=== PATIENT | female | born 1995 | race American Indian/Alaskan Native ===

== ENCOUNTER 2017-01-05 23:58 | Outpatient (CLI) | payer MEDICAID ==
[2017-01-06] MEDS ORDERED: LACTATED RINGERS 1,000 ML IV ONE (00:09)
[2017-01-06 00:20] VITALS: BP 117/68
[2017-01-06 00:49] LABS: Bilirubin,Urine NEG (Negative); Blood,Urine NEG (Negative); Ketones,Urine NEG (Negative); Leukocyte Esterase,Urine NEG (Negative); Mucus,Urine 1+ /HPF; Nitrite,Urine NEG (Negative); Protein,Urine <15 mg/dL mg/dL (Negative)
== END 2017-01-06 01:30 | disposition home or self-care (01) ==
LOC: TRG 23:58
PROVIDERS: ATTEND Obstetrics & Gynecology
DX: O47.9 False labor, unspecified (principal); Z3A.00 Weeks of gestation of pregnancy not specified
CPT/HCPCS: 81001; 96360; J7120

== ENCOUNTER 2017-01-12 23:55 | Outpatient (CLI) | payer MEDICAID ==
[2017-01-13 00:24] VITALS: BP 103/50
[2017-01-13] MEDS ORDERED: VISTARIL PO ONE (01:07)
== END 2017-01-13 01:21 | disposition home or self-care (01) ==
LOC: TRG 23:55
PROVIDERS: ATTEND Obstetrics & Gynecology
DX: O62.0 Primary inadequate contractions (principal); O47.1 False labor at or after 37 completed weeks of gestation; Z3A.37 37 weeks gestation of pregnancy
CPT/HCPCS: Q0177

== ENCOUNTER 2019-10-05 20:28 | Inpatient (IN) | payer MEDICAID ==
[2019-10-05] MEDS ORDERED: MINERAL OIL 30 ML ORAL LIQD PO PRN (21:06)
[2019-10-05] MEDS ORDERED: LIDOCAINE (2%) 20 MG/1 ML VIAL 20 ML MDV INFILTRATI ONE (21:06)
[2019-10-05] MEDS ORDERED: ePHEDrine SULFATE 50 MG/1 ML INJ IV PRN (21:06)
[2019-10-05] MEDS ORDERED: TERBUTALINE 1 MG/1 ML INJ SUB-Q PRN (21:06)
[2019-10-05] MEDS ORDERED: TERBUTALINE 1 MG/1 ML INJ IVP PRN (21:06)
[2019-10-05] MEDS ORDERED: OXYTOCIN 20 UNIT/1000ML DRIP 20 UNITS/1,000 ML BAG IV SCH (22:00)
[2019-10-05 22:02] LABS: Hematocrit 33.8 % (30.3-42.9); Hemoglobin 11.4 gm/dl (10.1-14.3); Mean Corpuscular HGB Conc 34 % (30-34); Mean Corpuscular Volume 86 fl (79-97); Platelet Count 280 K/mm3 (140-440); Red Blood Count 3.92 M/mm3 (3.65-5.03); Red Cell Distribution Width 14.5 % (13.2-15.2)
[2019-10-05] MEDS ORDERED: DINOPROSTONE 10 MG VAG SUPP VG ONE (22:24)
[2019-10-06] MEDS ORDERED: NALOXONE 0.4 MG/1 ML INJ IV PRN (03:12)
[2019-10-06] MEDS ORDERED: LIDOCAINE (2%) 20 MG/1 ML VIAL 20 ML MDV INFILTRATI ONE (03:12)
[2019-10-06] MEDS ORDERED: ONDANSETRON 4 MG/2 ML INJ IV PRN (03:12)
[2019-10-06] MEDS: BUTORPHANOL 2 MG/1 ML INJ IV PRN ×3 (03:18→21:05)
[2019-10-06] MEDS ORDERED: LACTATED RINGERS 1,000 ML IV SCH (04:00)
[2019-10-06] MEDS ORDERED: OXYTOCIN DRIP 30 UNITS/500 ML BAG IV SCH (07:00)
[2019-10-06] MEDS: fentaNYL 100 MCG/2 ML INJ IV PRN ×2 (07:49→14:05)
--- NOTE | 2019-10-06 08:56 | History and Physical Report ---
History of Present Illness Date of examination: 10/06/19 Date of admission: 10/05/19 20:28 Chief complaint: Here for induction of labor History of present illness: Pt is a 24 yo at 39.1 weeks EGA who presents for IOL for morbid obesity. She reports positive movement and denies LOF or vaginal bleeding. She has received care with [facility] since 9 weeks EGA, co-managed with [facility]. She had a gap in care from 28 to 37 weeks. Her has been complicated by obesity, UTI treated, migraines, and glucose intolerance with a normal 3 hr GTT. She is GBS negative. 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: abnormal PAP smear (HPV positive), trichomonas (in 2009) Family/Genetic History: hypertension (MGF, MGM, mother, sister), stroke (Grandfather) Social history: no significant social history - Obstetrical History Expected Date of Delivery: 10/12/19 Actual Gestation: 39 Week(s) 1 Day(s) : 7 Para: 2 Hx # Term Pregnancies: 2 Number of Pregnancies: 0 Spontaneous Abortions: 4 Number of Living Children: 2 Medications and Allergies Allergies Allergy/AdvReac Type Severity Reaction Status Date / Time Penicillins AdvReac Mild Unknown Verified 10/05/19 21:06 Home Medications Medication Instructions Recorded Confirmed Last Taken Type Ferrous Sulfate [Feosol 325 MG tab] 325 mg PO BID #60 tablet 02/06/17 10/06/19 Unknown Rx Vit-Fe Fumar-FA [ 1 tab PO QDAY 10/06/19 10/06/19 Unknown History Vitamin] Active Meds: Active Medications Butorphanol Tartrate (Stadol) 2 mg IV Q2H PRN PRN Reason: Labor Pain Last Admin: 10/06/19 03:18 Dose: 2 mg Documented by: Ephedrine Sulfate (Ephedrine Sulfate) 10 mg IV Q2M PRN PRN Reason: Hypotension Fentanyl (Sublimaze) 100 mcg IV Q2H PRN PRN Reason: Labor Pain Last Admin: 10/06/19 07:49 Dose: 100 mcg Documented by: Oxytocin/Sodium Chloride (Pitocin/Ns 20 Unit/1000ml Drip) 20 units in 1,000 mls @ 125 mls/hr IV DIRECT AVELINA Lactated Ringer's (Lactated Ringers) 1,000 mls @ 125 mls/hr IV DIRECT AVELINA Oxytocin/Sodium Chloride (Pitocin/Ns 30 Unit/500ml) 30 units in 500 mls @ 2 mls/hr IV TITR AVELINA; Protocol Lactated Ringer's (Lactated Ringers) 1,000 mls @ 125 mls/hr IV DIRECT AVELINA Clindamycin HCl (Cleocin 900 Mg/50 Ml) 900 mg in 50 mls @ 100 mls/hr IV Q8H AVELINA; Protocol Mineral Oil (Mineral Oil) 30 ml PO QHS PRN PRN Reason: Constipation Naloxone HCl (Naloxone) 0.1 mg IV Q2MIN PRN PRN Reason: Res Rate </= 8 or 02 SAT < 92% Ondansetron HCl (Zofran) 4 mg IV Q8H PRN PRN Reason: Nausea And Vomiting Terbutaline Sulfate (Brethine) 0.25 mg SUB-Q ONCE PRN PRN Reason: Hyperstimulation/Hypertonicity Terbutaline Sulfate (Brethine) 0.25 mg IVP ONCE PRN PRN Reason: Hyperstimulation/Hypertonicity Review of Systems All systems: negative Cardiovascular: no chest pain Respiratory: no shortness of breath Genitourinary: contractions, other (vulvar swelling), no vaginal bleeding, no leakage of fluid - Vital Signs Vital signs: Vital Signs Pulse BP 106 H 119/58 10/05/19 20:54 10/05/19 20:54 Temp Pulse Resp BP Pulse Ox 98.2 F 89 18 106/51 10/06/19 07:33 10/06/19 07:56 10/06/19 07:49 10/06/19 07:56 - Physical Exam Lungs: Positive: Normal air movement Abdomen: Positive: normal appearance, soft Genitourinary (Female): Positive: normal external genitalia, normal perenium Uterus: Positive: enlarged (gravid) Extremities: Positive: normal - Obstetrical FHR: auscultation normal, category 1 Uterine Contraction Monitor Mode: External Cervical Dilatation: 3 Cervical Effacement Percentage: 10 station: -3 Uterine Contraction Frequency (min): 3-4 Uterine Contraction Pattern: Regular Uterine Contraction Intensity: Moderate Results Result Diagrams: 10/05/19 21:37 All other labs normal. Assessment and Plan A: 24 yo at 39.1 weeks EGA Obesity Hx UTI, treated Glucose intolerance with normal GTT GBS negative P: Continue IOL. Low dose pit and AROM after Cervidil Anticipate
[2019-10-06] MEDS: LACTATED RINGERS 1,000 ML IV SCH ×2 (09:47→19:22)
[2019-10-06] MEDS ORDERED: ZOLPIDEM 10 MG TAB PO PRN (23:16)
[2019-10-06] MEDS ORDERED: diphenhydrAMINE 50 MG/ML VIAL IV ONE (23:23)
[2019-10-06] MEDS ORDERED: DINOPROSTONE 10 MG VAG SUPP VG ONE (23:28)
[2019-10-07] MEDS: BUTORPHANOL 2 MG/1 ML INJ IV PRN (05:31)
[2019-10-07] MEDS ORDERED: diphenhydrAMINE 50 MG/ML VIAL IV ONE (07:16)
--- NOTE | 2019-10-07 08:13 | Progress Note ---
Assessment and Plan A: 24 yo at 39.2 weeks EGA Obesity Hx UTI, treated Glucose intolerance with normal GTT GBS negative P: Continue IOL. Removed Cervidil. Initiate Pitocin titration. Ambien / Benadryl for sleep Anticipate Subjective - Subjective Date of service: 10/07/19 Principal diagnosis: IOL for obesity Interval history: Pt is a 24 yo at 39.2 weeks EGA who is on day 2 of IOL for morbid obesity. Her has been complicated by obesity, UTI treated, migraines, and glucose intolerance with a normal 3 hr GTT. She is GBS negative. Patient reports: new complaints (pain, tired), movement normal, contractions Objective - Vital Signs Vital Signs: Vital Signs - 12hr 10/07/19 10/07/19 10/07/19 01:11 05:38 05:42 Temperature 98 F Pulse Rate 91 H 93 H 87 Respiratory 20 Rate Blood Pressure 109/56 105/55 Blood Pressure [Left] O2 Sat by Pulse 96 Oximetry 10/07/19 10/07/19 10/07/19 05:47 05:52 05:57 Temperature Pulse Rate 91 H 92 H 93 H Respiratory Rate Blood Pressure Blood Pressure [Left] O2 Sat by Pulse 97 97 98 Oximetry 10/07/19 10/07/19 10/07/19 06:02 06:07 06:12 Temperature Pulse Rate 89 90 89 Respiratory Rate Blood Pressure Blood Pressure [Left] O2 Sat by Pulse 97 97 98 Oximetry 10/07/19 10/07/19 10/07/19 06:17 06:22 06:23 Temperature Pulse Rate 95 H 90 104 H Respiratory Rate Blood Pressure Blood Pressure [Left] O2 Sat by Pulse 97 97 82 L Oximetry 10/07/19 10/07/19 10/07/19 06:27 06:35 06:40 Temperature Pulse Rate 85 117 H 81 Respiratory Rate Blood Pressure Blood Pressure [Left] O2 Sat by Pulse 97 100 96 Oximetry 10/07/19 10/07/19 10/07/19 06:45 06:50 06:55 Temperature Pulse Rate 90 84 85 Respiratory Rate Blood Pressure Blood Pressure [Left] O2 Sat by Pulse 96 97 96 Oximetry 10/07/19 10/07/19 10/07/19 07:00 07:05 07:10 Temperature Pulse Rate 89 82 80 Respiratory Rate Blood Pressure Blood Pressure [Left] O2 Sat by Pulse 96 96 97 Oximetry 10/07/19 10/07/19 10/07/19 07:15 07:18 07:20 Temperature 97.9 F Pulse Rate 103 H 86 84 Respiratory 18 Rate Blood Pressure 110/53 Blood Pressure 110/53 [Left] O2 Sat by Pulse 96 98 Oximetry 10/07/19 10/07/19 10/07/19 07:25 07:30 07:35 Temperature Pulse Rate 86 97 H 86 Respiratory Rate Blood Pressure Blood Pressure [Left] O2 Sat by Pulse 97 97 98 Oximetry 10/07/19 10/07/19 10/07/19 07:40 08:02 08:07 Temperature Pulse Rate 116 H 82 79 Respiratory Rate Blood Pressure Blood Pressure [Left] O2 Sat by Pulse 97 99 98 Oximetry - Exam Lungs: Normal air movement Abdomen: Present: soft FHR: category 1 Uterine Contraction Monitor Mode: External Cervical Dilatation: 3.5 Cervical Effacement Percentage: 60 station: -3 Uterine Contraction Pattern: Irregular Extremities: normal
[2019-10-07] MEDS: LACTATED RINGERS 1,000 ML IV SCH (11:53)
--- NOTE | 2019-10-07 13:09 | Anesthesia Consultation ---
Anesthesia Consult and Med Hx Date of service: 10/07/19 - Airway Anesthetic Teeth Evaluation: Good ROM Head & Neck: Adequate Mental/Hyoid Distance: Adequate Mallampati Class: Class II Intubation Access Assessment: Probably Good - Pulmonary Exam CTA: Yes - Cardiac Exam Cardiac Exam: RRR - Pre-Operative Health Status ASA Pre-Surgery Classification: ASA3 Proposed Anesthetic Plan: Epidural, Spinal - Pulmonary Hx Asthma: No COPD: No Hx Pneumonia: No - Cardiovascular System Hx Hypertension: No - Central Nervous System Hx Seizures: No Hx Psychiatric Problems: No - Endocrine Hx Renal Disease: No Hx End Stage Renal Disease: No Hx Hypothyroidism: No Hx Hyperthyroidism: No - Hematic Hx Anemia: No Hx Sickle Cell Disease: No - Other Systems Hx Alcohol Use: No Hx Obesity: Yes
[2019-10-07] MEDS ORDERED: DEXMEDETOMIDINE 200 MCG/2 ML VIAL IV ONE (13:27)
--- NOTE | 2019-10-07 13:27 | Event Note ---
Date: 10/07/19 AROM at 1324 clear fluid. SVE now /-3. FHT category 1 throughout. Pt tolerated well, comfortable with epidural.
[2019-10-07] MEDS ORDERED: ePHEDrine SULFATE 50 MG/1 ML INJ IV PRN (13:30)
[2019-10-07] MEDS ORDERED: fentaNYL-BUPIV 2 MCG/ML-0.125% 200 MCG/100 ML BAG EPIDURAL SCH (14:00)
[2019-10-07] MEDS ORDERED: NALOXONE 2 MG/2 ML INJ IV PRN (14:00)
[2019-10-07] MEDS ORDERED: miSOPROStol 200 MCG TAB PR PRN (15:21)
[2019-10-07] MEDS ORDERED: LANOLIN/ZINC/DIMETHICONE (LANSINOH) 7 GM TP PRN (15:21)
[2019-10-07] MEDS ORDERED: MAGNESIUM HYDROXIDE (MOM) ORAL LIQD UDC PO PRN (15:21)
[2019-10-07] MEDS ORDERED: diphenhydrAMINE 25 MG CAP PO PRN (15:21)
[2019-10-07] MEDS ORDERED: ACETAMINOPHEN 325 MG TAB PO PRN (15:21)
[2019-10-07] MEDS ORDERED: PROMETHAZINE 25 MG TAB PO PRN (15:21)
[2019-10-07] MEDS ORDERED: ONDANSETRON 4 MG/2 ML INJ IV PRN (15:21)
[2019-10-07] MEDS ORDERED: WITCH HAZEL/ GLYCERIN PAD TP PRN (15:21)
[2019-10-07] MEDS ORDERED: PROMETHAZINE 25 MG RECT SUPP PR PRN (15:21)
--- NOTE | 2019-10-07 15:27 | Procedure Note ---
OB Delivery Note - Delivery Date of Delivery: 10/07/19 Surgeon: MANJU FARIAS (CN) Estimated blood loss: other (150cc) - Vaginal Delivery presentation: vertex Delivery position: OA Intrapartum events: PROM->1hr before delivery Delivery induction: cervidil Delivery augmentation: rupture of membranes, pitocin Delivery monitor: external FHT, external uterine Route of delivery: Delivery placenta: spontaneous Delivery cord: nuchal cord (x1), 3 umbilical vessels Episiotomy: none Delivery laceration: other (periurethral abrasion) Anesthesia: epidural Delivery comments: Excellent maternal effort resulted in of male infant at 1359. Head delivered OA, restituted ROT. Infant to maternal abdomen. Dried and stimulated to lusty cry. Apgars 8/9. Placenta delivered spontaneously and intact. Cord clamped and cut, to warmer for assessment. Periurethral abrasion hemostatic, not repaired. EBL 150ml. pitocin infusing. - Infant A at 1 minute: 8 at 5 minutes: 9 Gender: Male
[2019-10-07] MEDS ORDERED: IBUPROFEN 600 MG TAB PO SCH (16:00)
[2019-10-07] MEDS: FERROUS SULFATE 325 MG TAB PO SCH (21:25)
[2019-10-08] MEDS ORDERED: oxyCODONE /ACETAMINOPHEN 5-325MG TAB PO ONE ×2 (00:04→05:53)
[2019-10-08] MEDS ORDERED: HYDROcodone/ACETAMINOPHEN 5-325 MG TAB PO ONE (01:22)
[2019-10-08] MEDS: IBUPROFEN 800 MG TAB PO PRN ×3 (04:05→16:25)
[2019-10-08] MEDS ORDERED: TETANUS,DIPH,PERTUSS(ACELL) VACCINE 0.5 ML SYRINGE IM ONE (06:00)
[2019-10-08 06:34] LABS: Hematocrit 32.4 % (30.3-42.9); Hemoglobin 10.4 gm/dl (10.1-14.3)
--- NOTE | 2019-10-08 07:56 | Progress Note ---
Assessment and Plan - Patient Problems (1) Normal vaginal delivery Current Visit: Yes Status: Acute Plan to address problem: will be evaluated by anesthesia Subjective - Subjective Date of service: 10/08/19 Principal diagnosis: IOL for obesity Interval history: Patient complains of discomfort at epidural site. She has been ambulating and tolerating regular diet. Experiencing cramping with . Patient reports: appetite normal, voiding normally, pain well controlled [place]: doing well Objective - Vital Signs Latest vital signs: Vital Signs Temp Pulse Resp BP BP Pulse Ox 10/08/19 06:31 97.8 F 87 18 118/57 99 10/08/19 00:25 97.4 F L 88 20 99/50 99 10/07/19 20:49 98.0 F 90 18 105/50 100 10/07/19 16:59 77 98/53 10/07/19 16:45 70 101/53 10/07/19 16:15 75 108/56 10/07/19 15:59 81 93/62 10/07/19 15:51 97.3 F L 18 10/07/19 15:44 75 87/55 10/07/19 15:29 101/50 10/07/19 15:15 70 97/53 10/07/19 15:01 94 H 99 10/07/19 15:00 100 H 133/86 10/07/19 14:56 102 H 100 10/07/19 14:51 81 100 10/07/19 14:46 70 100 10/07/19 14:44 77 109/59 10/07/19 14:41 74 97 10/07/19 14:36 68 100 10/07/19 14:31 70 100 10/07/19 14:29 76 105/54 10/07/19 14:26 71 98 10/07/19 14:21 78 100 10/07/19 14:16 74 103/53 99 10/07/19 14:11 76 98 10/07/19 14:06 70 98 10/07/19 14:01 74 98 10/07/19 14:00 75 103/55 10/07/19 13:56 69 99 10/07/19 13:51 73 98 10/07/19 13:47 78 96/54 10/07/19 13:46 79 97/54 98 10/07/19 13:41 79 98 10/07/19 13:36 74 98 10/07/19 13:31 82 99 10/07/19 13:26 81 101/63 97 10/07/19 13:23 86 102/62 10/07/19 13:21 99 10/07/19 13:20 80 99/56 10/07/19 13:18 79 100/67 10/07/19 13:16 91 H 99 10/07/19 13:11 86 98 10/07/19 13:08 81 102/55 10/07/19 13:06 88 114/62 100 10/07/19 12:59 77 123/67 10/07/19 12:58 85 100 10/07/19 12:56 75 117/62 10/07/19 12:53 81 117/58 99 10/07/19 12:50 89 123/59 10/07/19 12:49 88 142/66 10/07/19 12:48 26 L 10/07/19 12:45 95 H 71 L 10/07/19 12:43 90 98 10/07/19 12:38 88 97 10/07/19 12:33 74 114/60 98 10/07/19 12:30 98.1 F 76 18 114/60 99 10/07/19 10:59 82 112/52 10/07/19 08:22 86 98 10/07/19 08:17 83 98 10/07/19 08:12 82 98 10/07/19 08:07 79 98 10/07/19 08:02 82 99 Intake and Output 10/07/19 10/08/19 10/08/19 22:59 06:59 14:59 Intake Total 240 240 Output Total 701 Balance -461 240 Intake: Intake, Free Water 240 240 Output: Urine 701 Void 701 Other: Total, Output Amount 300 # Voids Void 3 1 Estimated Blood Loss 150 - Exam Abdomen: Present: normal appearance Incision: Present: other (back: no ecchymoses at site; mildly TTP)
--- NOTE | 2019-10-08 07:57 | Discharge Summary ---
Providers - Providers Date of Admission: 10/05/19 20:28 Date of discharge: 10/08/19 Attending physician: MICHAEL SYLVESTER Primary care physician: MICHAEL SYLVESTER Hospitalization Reason for admission: active labor Delivery: Discharge diagnosis: IUP at term delivered Hospital course: Patient admitted and had a . complained of discomfort at epidural site. Remainder of uncomplicated Condition at discharge: Good Disposition: DC-01 TO HOME OR SELFCARE - Discharge Diagnoses (1) Normal vaginal delivery Status: Acute Plan - Discharge Medications Prescriptions: Ferrous Sulfate [Ferrous Sulfate 324 MG] 324 mg PO BID #60 tablet. Ibuprofen [Motrin] 600 mg PO Q6H PRN #60 tablet PRN Reason: Pain HYDROcodone/APAP 5-325 [[place] 5/325] 1 each PO Q6HR PRN #20 tablet PRN Reason: Pain - Provider Discharge Summary Activity: no sex for 6 weeks, no heavy lifting 4 weeks, no strenuous exercise Diet: routine Instructions: routine Additional instructions: [] Smoking cessation referral if applicable(refer to patient education folder for contact #) [] Refer to [facility] Booklet Call your doctor immediately for: * Fever > 100.5 * Heavy vaginal bleeding ( >1 pad per hour) * Severe persistent headache * Shortness of breath * Reddened, hot, painful area to leg or breast * schedule visit in 4 weeks - Follow up plan
[2019-10-08] MEDS: FERROUS SULFATE 325 MG TAB PO SCH (10:00)
--- NOTE | 2019-10-08 11:06 | Progress Note ---
Subjective Date of service: 10/08/19 Principal diagnosis: IOL for obesity Interval history: Consulted to see patient for pain at epidural insertion site. No fever/chills/s&s infection. No extremity weakness/numbness. Tender to palpation at site, no redness warmth. Most likely bruising from insertion, instructed patient to apply ice, use acetaminophen for discomfort, may take up to a week to resolve, and follow up if symptoms get worse or change. Objective - Constitutional Vitals: Vital Signs - 12hr 10/08/19 10/08/19 10/08/19 00:25 06:31 08:12 Temperature 97.4 F L 97.8 F 97.7 F Pulse Rate 88 87 74 Respiratory 20 18 18 Rate Blood Pressure 99/50 118/57 Blood Pressure 93/34 [Left] O2 Sat by Pulse 99 99 Oximetry 10/08/19 10:00 Temperature Pulse Rate 79 Respiratory Rate Blood Pressure Blood Pressure 104/51 [Left] O2 Sat by Pulse Oximetry - Labs CBC & Chem 7: 10/08/19 06:18
[2019-10-09] MEDS: FERROUS SULFATE 325 MG TAB PO SCH ×2 (03:13→11:16)
[2019-10-09] MEDS: IBUPROFEN 800 MG TAB PO PRN ×2 (03:14→11:27)
[2019-10-09 14:16] VITALS: BP 119/65
== END 2019-10-09 14:00 | disposition home or self-care (01) | DRG 775 ==
LOC: LD 20:28 → OB 10-07 18:33
PROVIDERS: ADMIT Obstetrics & Gynecology; ATTEND Obstetrics & Gynecology
PROC: 10E0XZZ Delivery of Products of Conception, External Approach (ICD-10-PCS; principal; 2019-10-07)
PROC: 3E0P7VZ Introduction of Hormone into Female Reproductive, Via Natural or Artificial Opening (ICD-10-PCS; 2019-10-07)
PROC: 3E0R3BZ Introduction of Anesthetic Agent into Spinal Canal, Percutaneous Approach (ICD-10-PCS; 2019-10-07)
PROC: 00HU33Z Insertion of Infusion Device into Spinal Canal, Percutaneous Approach (ICD-10-PCS; 2019-10-07)
PROC: 10907ZC Drainage of Amniotic Fluid, Therapeutic from Products of Conception, Via Natural or Artificial Opening (ICD-10-PCS; 2019-10-07)
PROC: 3E0234Z Introduction of Serum, Toxoid and Vaccine into Muscle, Percutaneous Approach (ICD-10-PCS; 2019-10-08)
DX: O42.92 Full-term premature rupture of membranes, unspecified as to length of time between rupture and onset of labor (principal); O69.81X0 Labor and delivery complicated by cord around neck, without compression, not applicable or unspecified; O99.214 Obesity complicating childbirth; E66.01 Morbid (severe) obesity due to excess calories; O99.354 Diseases of the nervous system complicating childbirth; G43.909 Migraine, unspecified, not intractable, without status migrainosus; O71.82 Other specified trauma to perineum and vulva; Z3A.39 39 weeks gestation of pregnancy; Z37.0 Single live birth; Z23 Encounter for immunization; Z87.440 Personal history of urinary (tract) infections; Z82.49 Family history of ischemic heart disease and other diseases of the circulatory system; Z82.3 Family history of stroke; Z88.0 Allergy status to penicillin; Z79.899 Other long term (current) drug therapy
CPT/HCPCS: 36415; 59200; 85014; 85018; 85027; 86850; 86900; 86901; G0378; J0595; J1200; J2590; J3010; J3490; J7120